=== PATIENT | female | born 1955 | race Caucasian/White ===

== ENCOUNTER 2018-08-25 14:01 | Emergency (ER) | payer OTHER ==
[~2018-08-25] VITALS: Ht 154.9 cm; Wt 56.7 kg
[2018-08-25] MEDS ORDERED: Bactrim Ds Tab1 EACH PO (14:40)
[2018-08-25] MEDS ORDERED: ALEVAZOL56.7 GM TOP (14:40)
== END 2018-08-25 14:56 | disposition home or self-care (01) ==
LOC: ER 14:01
DX: L03.311 Cellulitis of abdominal wall (principal); B37.2 Candidiasis of skin and nail; Z85.3 Personal history of malignant neoplasm of breast
CPT/HCPCS: 99282